=== PATIENT | female | born 1955 | race African-American/Black ===

== ENCOUNTER → 2018-09-20 | Day surgery (SDC) | payer OTHER ==
[~2018-09-20] VITALS: Ht 154.9 cm; Wt 66.7 kg
[~2018-09-20] MED LIST: ATOR10TA60 PO; BUPIVACAINE MPF 0.5% 30 ML VIAL. ONE; CALC600T23 PO; CHOL10003 PO; CLINDAMYCIN 900MG PREMIX 50 ML IV PRN; DENO60DI SQ; DEXAMETHASONE SOD PHOS 20 MG/5 ML VIAL. ONE; HYDR-3164 PO; HYDROcodone/APAP 5/325MG 1 TAB TABLET PO PRN; HYDROmorphone 2 MG/ML VIAL IV PRN; IV RINGERS,LACTATED 1000ML 1,000 ML IV SCH; LIDOCAINE 1% PF 2 ML VIAL. ID PRN; LOSA1TAB19 PO; METO-269 PO; MORPHINE SULFATE 2 MG/ML VIAL. IV PRN; ONDANSETRON PF 4 MG/2 ML VIAL. IV PRN; ONDANSETRON PF 4 MG/2 ML VIAL. ONE; PROCHLORPERAZINE 10 MG/2 ML VIAL. IV PRN; PROPOFOL 20 ML IV ONE; SCOPOLAMINE 1.5MG PATCH. TD ONE; SEVOFLURANE 31 TO 60 MINUTES. IH ONE; fentaNYL PF VIAL 100 MCG/2 ML VIAL IV PRN; fentaNYL PF VIAL 100 MCG/2 ML VIAL ONE
--- NOTE | 2018-09-20 07:49 | DISCH ---
DISCHARGE INSTRUCTIONS Condition on Discharge Condition on Discharge: Stable Activity After Discharge Activity Instructions for Disc: Other, see below (advance activity as tolerated avoid any rubbing on the incision) Driving Instructions after Dis: Do not drive Weight Bearing Status after Di: As tolerated Diet after Discharge Diet after Discharge: Cardiac, Regular Wound Incision Care Wound/Incision Care: Ice to area for comfort, Keep wound elevated, Change dressing (May remove dressing in 3 days keep butterflies strips intact may then shower but no soaking ) Contacting the DR. after DC Call your doctor for: Concerns you may have Follow-Up Follow up with: Ned 7-10 days OLIVERIO SOLIS MD Sep 20, 2018 07:49
--- NOTE | 2018-09-20 09:28 | PDOC4 ---
Operative Note Operative Note Date of surgery: 09/20/2018 Preoperative diagnosis: Symptomatic hardware right ankle Postoperative diagnosis: Same Operative procedure: Removal right ankle medial plate and screw hardware Surgeon: Ned Assist: Mukesh Eisenberg Anesthesia: Gen. Estimated blood loss: 5 mL Competitions: None Operative indications: Andra is a 63-year-old female who underwent operative reduction fixation of bilateral ankle fractures some time ago and is overall had a good recovery however she has recently developed more pain in the right ankle with activity and was noted to have slight prominence of perhaps 2-3 of the screws in the medial plate that appeared to be causing some irritation at the fibula at the distal tibiofibular joint. Given that her fracture is well- healed and the hardware has performed its function allowing stability during the healing process I went over with her the possibility of removing the symptomatic screws or perhaps even removing the entire plate. I went over with her that this would not affect her activity level as the bone was already healed. The main concerns would be infection nerve or blood vessel damage and activity modification until any incision is healed. All her questions were answered she wishes to proceed with hardware removal Operative text: Patient was identified procedure verified patient placed in the supine position on the operating table. After adequate amounts of general anesthesia were administered right lower extremity was prepped and draped in standard sterile fashion and after timeout was performed patient procedure identified and verified the right lower extremity was exsanguinated by Esmarch bandage. An incision was made over the distal aspect of the plate and subperiosteal dissection was carried out. Distal screws were removed and elected at this point to remove the entire plate to avoid any medial irritation. Complete healing have been noted with intact ankle joint mortise and her lateral hardware was symptomatic and retained. Thorough irrigation carried out normal saline solution bleeding points controlled by electrocautery subcutaneous closure with buried Vicryl suture subcuticular Monocryl Steri- Strips and Mastisol were placed followed by a well-padded soft dressing. Toes were noted be warm pink find deflation of tourniquet patient was returned recovery room in stable condition having tolerated procedure well OLIVERIO SOLIS MD Sep 20, 2018 09:28
[2018-09-20 10:15] VITALS: BP 129/81
== END | disposition home or self-care (01) ==
LOC: SURG 06:57
PROVIDERS: ATTEND Orthopaedic Surgery
DX: T84.84XA Pain due to internal orthopedic prosthetic devices, implants and grafts, initial encounter (principal); Y83.9 Surgical procedure, unspecified as the cause of abnormal reaction of the patient, or of later complication, without mention of misadventure at the time of the procedure; Z98.890 Other specified postprocedural states; Z88.8 Allergy status to other drugs, medicaments and biological substances; Z79.899 Other long term (current) drug therapy
CPT/HCPCS: 20680; 76000; J1100; J2405; J2704; J3010; J3490

== ENCOUNTER → 2020-12-17 | Outpatient (CLI) | payer BC, OTHER ==
[2018-09-20 10:15] VITALS: BP 129/81
[~2020-12-17] MED LIST changes: -BUPIVACAINE MPF 0.5% 30 ML VIAL. ONE; -CLINDAMYCIN 900MG PREMIX 50 ML IV PRN; -DEXAMETHASONE SOD PHOS 20 MG/5 ML VIAL. ONE; -HYDROcodone/APAP 5/325MG 1 TAB TABLET PO PRN; -HYDROmorphone 2 MG/ML VIAL IV PRN; -IV RINGERS,LACTATED 1000ML 1,000 ML IV SCH; -LIDOCAINE 1% PF 2 ML VIAL. ID PRN; -MORPHINE SULFATE 2 MG/ML VIAL. IV PRN; -ONDANSETRON PF 4 MG/2 ML VIAL. IV PRN; -ONDANSETRON PF 4 MG/2 ML VIAL. ONE; -PROCHLORPERAZINE 10 MG/2 ML VIAL. IV PRN; -PROPOFOL 20 ML IV ONE; -SCOPOLAMINE 1.5MG PATCH. TD ONE; -SEVOFLURANE 31 TO 60 MINUTES. IH ONE; -fentaNYL PF VIAL 100 MCG/2 ML VIAL IV PRN; -fentaNYL PF VIAL 100 MCG/2 ML VIAL ONE
--- NOTE | 2020-12-17 18:02 | KCIC ---
MRI of the lumbar spine without contrast 12/17/2020 CLINICAL HISTORY: Lumbar radiculopathy. TECHNIQUE: Unenhanced T1-weighted and T2-weighted sagittal and axial and inversion recovery sagittal images of the lumbar spine were obtained. FINDINGS: Minimal S-shaped curvature of the thoracolumbar spine is seen. A hypoplastic disc is seen a t S1-2. Degenerative signal changes are seen involving all of the disks of the lumbar spine. Degenerative sig nal changes are seen within the marrow surrounding these discs. The conus medullaris is normal morpho logy, position, and signal characteristics. Increased signal intensity is seen on the inversion recovery and T2-weighted images throughout the sa dean extending to involve the sacral ala. This demonstrates decreased signal intensity on the T1-weig hted images. These findings are consistent with acute sacral insufficiency fractures. At the L1-2 disc space there is a minimal generalized disc bulge. Superimposed on this disc bulge is a left paracentral focal disc protrusion. This measures 4 mm in AP diameter. Degenerative changes are seen involving the facet joints bilaterally. There is mild ligament flavum hypertrophy bilaterally. These findings result in mild left-sided central spinal canal stenosis. No neural foraminal stenosis is seen. At the L2-3 disc space there is a mild generalized disc bulge. This is eccentric to the left. Degener ative changes are seen involving the facet joints bilaterally. There is mild ligament flavum hypertro phy bilaterally. These findings when combined do not result in significant central spinal canal or ne ural foraminal stenosis. At the L3-4 disc space there is a mild to moderate generalized disc bulge. This is eccentric to the l eft. Degenerative changes are seen involving the facet joints bilaterally. There is moderate ligament um flavum hypertrophy bilaterally. Findings when combined result in mild to moderate central spinal c anal stenosis. Mild left greater than right neural foraminal stenosis is seen. At the L4-5 disc space there is a moderate generalized disc bulge. Superimposed on this disc bulge is a focal central disc protrusion. This measures 2 mm in AP diameter. Degenerative changes are seen in volving the facet joints bilaterally. There is moderate ligament flavum hypertrophy bilaterally. Ther e are small facet joint effusions bilaterally. These findings when combined result in mild to moderat e central spinal canal stenosis. Mild to moderate right greater than left neural foraminal stenosis i s seen. At the L5-S1 disc space is a mild generalized disc bulge. Degenerative changes are seen involving the facet joints bilaterally. There is mild ligament flavum hypertrophy bilaterally. These findings when combined result in mild central spinal canal stenosis. No neural foraminal stenosis is seen. IMPRESSION: 1. Findings are seen consistent with acute sacral insufficiency fractures. 2. The changes of degenerative disc disease are seen throughout the lumbar spine. These findings resu lt in mild left-sided central spinal canal stenosis at L1-2, mild to moderate central spinal canal st enosis at L3-4 and L4-5 and mild central spinal canal stenosis at L5-S1. Mild left greater than right neural foraminal stenosis is seen at L3-4. Mild to moderate right greater than left neural foraminal stenosis is seen at L4-5. Electronically signed by: Juancarlos Aldrich MD (12/17/2020 5:59 PM) [id number]
== END ==
LOC: KCIC MRI 13:09
PROVIDERS: ATTEND Physician Assistant
DX: M47.27 Other spondylosis with radiculopathy, lumbosacral region (principal); M51.36 Other intervertebral disc degeneration, lumbar region; M48.061 Spinal stenosis, lumbar region without neurogenic claudication
CPT/HCPCS: 72148

== ENCOUNTER → 2021-01-13 | Outpatient (CLI) | payer BC ==
[2018-09-20 10:15] VITALS: BP 129/81
[~2021-01-13] MED LIST changes: +BIOT1CAP3 PO; +CYCL10TA2 PO; +HYDR12.575 PO; +MAGN250T9 PO; +MULT-245 PO; +POTA8CAP19 PO
--- NOTE | 2021-01-13 12:46 | PDOC1 ---
INITIAL PAIN CONSULT DATE OF SERVICE: DOS: DATE: 01/13/21 TIME: 12:35 CHIEF COMPLAINT: Chief Complaint: Low back and left greater than right lower extremity pain HISTORY OF PRESENT ILLNESS: 65-year-old female presents history of pain low back left lower extremity for approximately 2 and half months after she was out walking with a friend of hers to have some significant pain in the low back and leg. Patient reports that since that time the pain is getting worse in the low back posterior gluteus posterior lateral thigh anterior thigh anterior medial thigh medial lower leg into the calf on the left leg as well. Patient reports is only on the left side not the right she walks daily or uses a stationary bicycle daily and continues to do this which is been decreasing the pain slightly but only very slightly patient had physical therapy in the past up until December of this year and helped some initially but the pain is returning and is not going away with her daily activities and exercise that she is currently doing especially on the stationary bicycle. Patient reports pain is radiating left lower extremity describes as cramping and aching in the back shooting and stabbing and throbbing in the left lower extremity patient reports it wakes her from sleep occasionally but not most nights but does not affect her bowel bladder control does affect her ability to walk she does not use any assistive devices currently but does use a electric chair when it is available to her. Patient is taken [id number] anti-inflammatories Motrin and Tylenol as well without significant decrease in pain. Patient also tried a Medrol Dosepak which was not significantly helpful in reducing the pain about a month ago. Patient had MRI scan lumbar spine dated December 17, 2020 showing degenerative disc disease throughout the lumbar spine with mild left-sided central spinal canal stenosis L1 to moderate central spinal canal stenosis at L3-4 and L4-5 mild central spinal canal stenosis at L5-S1 mild left greater than right neuroforaminal stenosis at L3-4 and right greater than left neuroforaminal stenosis at L4-5. PAST MEDICAL HISTORY: PMH: Hypertension, arthritis, hyperlipidemia PREVIOUS SURGERIES: Past Surgical Hx: Right ankle fracture and left ankle fracture 2018, benign breast cystectomy, benign ovarian cystectomy, sinus surgery, x2, tubal ligation CURRENT MEDICATIONS: Current Meds: Active Scripts Medications Dose Route/Sig Max Daily Dose Days Date Category Cyclobenzaprine Hcl 10 Mg Tablet 10 Mg PO TID 01/13/21 Reported Biotin 1 Mg Capsule 1 Mg PO DAILY 01/13/21 Reported Magnesium Oxide 250 Mg Tablet Unknown Dose PO DAILY 01/13/21 Reported Potassium Chloride 8 Meq Capsule.er Unknown Dose PO DAILY 01/13/21 Reported Hydrochlorothiazide Capsule (Hydrochlorothiazide) 12.5 Mg Capsule 12.5 Mg PO DAILY 01/13/21 Reported Multi Vitamin Daily (Multivitamin) 1 Each Tablet 1 Tab PO DAILY 30 01/13/21 Reported [place] 5-325 Tablet (Acetaminophen/Hydrocodone Bitart) 1 Each Tablet 1 Tab PO PRN Q6HRS PRN 09/20/18 Rx Atorvastatin Calcium 10 Mg Tablet 10 Mg PO HS 09/20/18 Reported Vitamin D3 (Cholecalciferol (Vitamin D3)) 1,000 Unit Tablet 1,000 Unit PO DAILY 09/20/18 Reported Toprol Xl (Metoprolol Succinate) 50 Mg Tab.er.24h 50 Mg PO DAILY 09/20/18 Reported Losartan-Hctz 50-12.5 Mg Tab (Losartan/Hydrochlorothiazide) 1 Each Tablet 1 Each PO DAILY 09/20/18 Reported ALLERGIES; Allergies: Coded Allergies: cefaclor (Verified Allergy, Intermediate, 07/04/15) FAMILY HISTORY: Family Hx: Colon cancer, bone cancer SOCIAL HISTORY: Social Hx: Patient drinks alcohol very rarely does not smoke not use any illegal illicit recreational drugs is lives with her spouse has 2 children living at home lives locally in [facility], and is currently retired. REVIEW OF SYSTEMS: ROS: Positive for those items mentioned in history of present illness, all systems are reviewed, otherwise negative ,and are complete full and well-documented on patient's chart. PHYSICAL EXAM: VS: Blood pressure is 144/93 pulse 101 respirations 16 temperature 98.2 F height is 5 foot 1 inch, weight 172 pounds PE: PHYSICAL EXAMINATION: GENERAL: The patient is awake, alert, oriented, appropriate, very pleasant demeanor HEENT: Shows normocephalic, atraumatic. Extraocular movements are intact and symmetrical. Oral cavity: Mucous membranes moist and pink. NECK: Shows anterior throat supple without palpable lymphadenopathy noted. Swallow reflex symmetrical. CHEST: Shows normal on inspection. Breath sounds are clear bilaterally, no rales or rhonchi auscultated. HEART: Shows S1, S2 clear. No murmurs auscultated. ABDOMEN: Soft, nontender, nondistended obese. No palpable organomegaly is noted. No rebound or guarding demonstrated. BACK: Shows spine grossly in the midline. Normal-appearing cervical lordotic curvature. There is slightly increased thoracic kyphosis, some minor flattening of the lumbar lordotic curvature. Lumbar paraspinous muscles show symmetrical on inspection, on palpation shows some moderate tenderness diffusely throughout the upper, middle and lower distribution of the paraspinous muscles bilaterally and also into the lower thoracic paraspinous musculature, firm and tender, but without specific trigger points, without radiation of pain. The patient has good rotational motion of the lumbar spine, both laterally as well as extension and flexion without significant difficulty. No tenderness over the spinous processes, sacrum or sacroiliac regions. EXTREMITIES: Lower extremities show deep tendon reflexes 1+ in the patellar and tendo calcaneus tendons. Motor exam is 4 on a scale of 5 with right dorsiflexion, extension, quadriceps and hamstring flexion and 4/5 on the left. Peripheral pulses are 1+ posterior tibial. No peripheral edema is noted bilaterally. Lower extremities are warm and dry to touch, equal in color and appearance. Straight leg raise noted to be negative on the right, left side is positive approximately 40 degrees decreased with knee flexion. Gaenslen's and Ramsey's maneuvers are negative bilaterally. The patient is able to stand, stand on her toes without significant difficulty or loss of balance walks with a slight shuffling gait does appear to favor her left lower extremity but not use any assistive devices on her visit today. SKIN: Shows warm and dry, good turgor. No edema. No sores, rashes or bruising throughout. IMPRESSION: Impression: 65-year-old female with 2 and half month history increasing pain low back left lower extremity and radicular fashion MRI scan lumbar spine as noted Hypertension Osteoporosis Arthritis Plan: Options were discussed with the patient including conservative management with continued physical therapies and interventional techniques. Patient would like to pursue interventional techniques. Discussed a lumbar epidural steroid injection using description as well as anatomical models to describe the procedure. Patient wait for preauthorization with her insurance provider and once is obtained we will plan on translaminar approach L4-5 level lumbar epidural steroid injection at that time. In the meantime patient will continue with stretching strength exercises from her physical therapy also oral analgesics as currently taking. BAMBI CALHOUN MD Jan 13, 2021 12:46
== END | disposition home or self-care (01) ==
LOC: PNCL 09:34
PROVIDERS: ATTEND Anesthesiology
DX: M54.5 Low back pain (principal); M48.061 Spinal stenosis, lumbar region without neurogenic claudication; M51.36 Other intervertebral disc degeneration, lumbar region; M79.604 Pain in right leg; I10 Essential (primary) hypertension; M19.90 Unspecified osteoarthritis, unspecified site; E78.00 Pure hypercholesterolemia, unspecified; F41.9 Anxiety disorder, unspecified; Z98.51 Tubal ligation status; Z98.890 Other specified postprocedural states; Z79.899 Other long term (current) drug therapy; Z72.89 Other problems related to lifestyle; Z88.8 Allergy status to other drugs, medicaments and biological substances
CPT/HCPCS: G0463

== ENCOUNTER → 2021-01-17 | Outpatient (CLI) | payer BC ==
[2018-09-20 10:15] VITALS: BP 129/81
[~2021-01-17] MED LIST changes: +IOHEXOL 180 MG/ML 10 ML VIAL. ONE; +methylPREDNISolone ACETATE 40 MG/ML VIAL. ONE; +methylPREDNISolone ACETATE 80 MG/ML VIAL. ONE
--- NOTE | 2021-01-17 09:21 | PDOC ---
Progress Note - Pain Clinic Date of Service: DOS: DATE: 01/17/21 TIME: 09:18 Diagnosis: Dx: Lumbar radiculopathy with lumbar degenerative disease and lumbar spinal stenosis History or Present Illness: HPI: 65-year-old female returns to follow-up status post initial evaluation preauthorization for lumbar epidural steroid injection. Patient continues to have pain low back left lower extremity as it was previously posterior gluteus posterior lateral thigh lateral anterior thigh anteromedial thigh radiating to the calf scribes aching and cramping without any significant change. Patient reports her pain is a 7 on scale 10 is worst over this week for an average to its least is a 4 today patient reports is worse with walking standing changing positions better with sitting or laying down patient reports no new motor or sensory deficits no new bowel complaints. Physical Exam: VS: Blood pressure is 138/99 pulse 111 respirations 18 temperature 98.5 F weight is 110 pounds PE: PHYSICAL EXAMINATION: GENERAL: The patient is awake, alert, oriented, appropriate, very pleasant demeanor HEENT: Shows normocephalic, atraumatic. Extraocular movements are intact and symmetrical. Oral cavity: Mucous membranes moist and pink. NECK: Shows anterior throat supple without palpable lymphadenopathy noted. Swallow reflex symmetrical. CHEST: Shows normal on inspection. Breath sounds are clear bilaterally. HEART: Shows S1, S2 clear. No murmurs auscultated. ABDOMEN: Soft, nontender, nondistended. No palpable organomegaly is noted. No rebound or guarding demonstrated. BACK: Shows spine grossly in the midline. Normal-appearing cervical lordotic curvature. There is slightly increased thoracic kyphosis, some minor flattening of the lumbar lordotic curvature. Lumbar paraspinous muscles show symmetrical on inspection, on palpation shows some moderate tenderness diffusely throughout the upper, middle and lower distribution of the paraspinous muscles without specific trigger points, without radiation of pain. The patient has good rotational motion of the lumbar spine, both laterally as well as extension and flexion without significant difficulty. EXTREMITIES: Lower extremities show deep tendon reflexes 1+ in the patellar and tendo calcaneus tendons. Motor exam is 4 on a scale of 5 with right dorsiflexion, extension, quadriceps and hamstring flexion and 4/5 on the left. Peripheral pulses are 1+ posterior tibial. No peripheral edema is noted bilaterally. Lower extremities are warm and dry to touch, equal in color and appearance. SKIN: Shows warm and dry, good turgor. No edema. No sores, rashes or bruising throughout. Procedure: Procedure: Options were discussed with the patient. Patient chart reviews her current m edication regimen updated current review of systems updated today as well. We will proceed with a lumbar epidural steroid injection today with fluoroscopic guidance. Risks were discussed including but not limited to: Bleeding, infection, possibility of epidural hematoma and subsequent neurological compromise, dural puncture, headaches, spinal cord and/or nerve damage, side effects of steroid medication, and poor results regarding pain control. Patient understands and wished to proceed. Patient return to the clinic in approximate 2 weeks for follow-up, was counseled as return appointment, activity level, and side effects to be aware of. Medication Injected: Med Injected: Procedure is lumbar epidural steroid injection under local anesthetic using sterile prep and drape at the L4-5 level using C-arm fluoroscopic guidance in both AP and lateral views medications injected is 120 mg Depo-Medrol + 10 mL preservative-free normal saline and 2 mL contrast- condition at discharge is stable patient tolerated procedure well had no complications. Condition at Discharge: Condition at Discharge: Condition at discharge is stable, patient already procedure well and had no complications. BAMBI CALHOUN MD Jan 17, 2021 09:20
--- NOTE | 2021-01-17 09:21 | PDOC4 ---
PROCEDURE Procedure Patient was consented for lumbar epidural steroid injection. Risks were dis cussed including but not limited to: Bleeding, infection, possibility of epidural hematoma and subsequent neurological compromise, dural puncture, headaches, spinal cord and/or nerve damage, side effects of steroid medication, and poor results regarding pain control. Patient understands and wished to proceed. Procedure is lumbar epidural steroid injection under local anesthetic using sterile prep and drape at the L4-5 level using C-arm fluoroscopic guidance in both AP and lateral views medications injected is 120 mg Depo-Medrol + 10 mL preservative-free normal saline and 2 mL contrast- condition at discharge is stable patient tolerated procedure well had no complications. BAMBI CALHOUN MD Jan 17, 2021 09:21
== END | disposition home or self-care (01) ==
LOC: PNCL 08:26
PROVIDERS: ATTEND Anesthesiology
DX: M51.16 Intervertebral disc disorders with radiculopathy, lumbar region (principal); M48.061 Spinal stenosis, lumbar region without neurogenic claudication; E78.00 Pure hypercholesterolemia, unspecified; I10 Essential (primary) hypertension; M81.0 Age-related osteoporosis without current pathological fracture; F41.9 Anxiety disorder, unspecified; Z98.51 Tubal ligation status; Z98.890 Other specified postprocedural states; Z79.899 Other long term (current) drug therapy; Z72.89 Other problems related to lifestyle; Z88.8 Allergy status to other drugs, medicaments and biological substances
CPT/HCPCS: 62323; J1030; J1040; Q9965

== ENCOUNTER → 2021-01-31 | Outpatient (CLI) | payer BC ==
[2018-09-20 10:15] VITALS: BP 129/81
[~2021-01-31] MED LIST changes: -IOHEXOL 180 MG/ML 10 ML VIAL. ONE; -methylPREDNISolone ACETATE 40 MG/ML VIAL. ONE; -methylPREDNISolone ACETATE 80 MG/ML VIAL. ONE
--- NOTE | 2021-01-31 11:09 | PDOC ---
Progress Note - Pain Clinic Date of Service: DOS: DATE: 01/31/21 TIME: 11:06 Diagnosis: Dx: Lumbar radiculopathy with lumbar degenerative disease and lumbar spinal stenosis History or Present Illness: HPI: 65-year-old female returns for follow-up status post lumbar epidural steroid traction x1. Patient reports about 80 to 90% improvement after the injection and still significantly improved by about 80% patient reports the pain is occasional now only in the left lower extremity in the low back she is increasing her activity with greater ease and comfort continues to do stretching and strength exercises daily is riding a stationary bike at least twice daily and feels good doing this patient reports she is feeling much better is very impressed with her improvement she is doing better with distance walking doing household activities travel with greater ease and comfort sleeping well at night does not awaken her from sleep patient reports her pain is a 5 on a scale 10 is worse over the past week 2 on average 0 its least and is a 0 today patient reports aching and dull in the back and the calf at times but only with extended walking more than 2-3 times a day and the pain resolves after she rests. Patient new motor or sensory deficits no bowel or bladder incontinence or other complaints. Physical Exam: VS: Blood pressure is 132/84 pulse 111 respirations 18 temperature 98.1 F weight is 162 pounds PE: PHYSICAL EXAMINATION: GENERAL: The patient is awake, alert, oriented, appropriate, very pleasant demeanor HEENT: Shows normocephalic, atraumatic. Extraocular movements are intact and symmetrical. Oral cavity: Mucous membranes moist and pink. NECK: Shows anterior throat supple without palpable lymphadenopathy noted. Swallow reflex symmetrical. CHEST: Shows normal on inspection. Breath sounds are clear bilaterally, no rales or rhonchi. HEART: Shows S1, S2 clear. No murmurs auscultated. ABDOMEN: Soft, nontender, nondistended, obese. No palpable organomegaly is noted. No rebound or guarding demonstrated. BACK: Shows spine grossly in the midline. Normal-appearing cervical lordotic curvature. There is slightly increased thoracic kyphosis, some minor flattening of the lumbar lordotic curvature. Lumbar paraspinous muscles show symmetrical on inspection, on palpation shows some moderate tenderness diffusely throughout the upper, middle and lower distribution of the paraspinous muscles without specific trigger points, without radiation of pain. The patient has good rotational motion of the lumbar spine, both laterally as well as extension and flexion without significant difficulty. EXTREMITIES: Lower extremities show deep tendon reflexes 1 in the patellar and tendo calcaneus tendons. Motor exam is 4 on a scale of 5 with right kinza siflexion, extension, quadriceps and hamstring flexion and 4/5 on the left. Peripheral pulses are 1+ posterior tibial. No peripheral edema is noted bilaterally. Lower extremities are warm and dry to touch, equal in color and appearance. SKIN: Shows warm and dry, good turgor. No edema. No sores, rashes or bruising throughout. Procedure: Procedure: Options were discussed with the patient. Patient chart reviews her current medication regimen updated current review of systems updated today as well. We will get patient preauthorized for second lumbar epidural steroid that she is doing very well after the first injection with 80 to 90% improvement still lasting to this day 3 weeks later but the pain is beginning to return in the left lower extremity in a radicular fashion once again following an L4-5 dermatomal distribution. Patient will continue with stretching strength exercises also riding her stationary bike twice daily and activity as tolerated. Patient will take anti-inflammatories but only rarely and reports she is only needed her pain medicine about 3 times since her last visit. Once approved we will plan on translaminar approach L4-5 lumbar epidural steroid injection at that time. Medication Injected: Med Injected: None Condition at Discharge: Condition at Discharge: Condition at discharge is stable. BAMBI CALHOUN MD Jan 31, 2021 11:09
== END | disposition home or self-care (01) ==
LOC: PNCL 10:18
PROVIDERS: ATTEND Anesthesiology
DX: M51.16 Intervertebral disc disorders with radiculopathy, lumbar region (principal); M48.061 Spinal stenosis, lumbar region without neurogenic claudication; I10 Essential (primary) hypertension; E78.00 Pure hypercholesterolemia, unspecified; M81.0 Age-related osteoporosis without current pathological fracture; F41.9 Anxiety disorder, unspecified; Z98.51 Tubal ligation status; Z98.890 Other specified postprocedural states; Z79.899 Other long term (current) drug therapy; Z72.89 Other problems related to lifestyle; Z88.8 Allergy status to other drugs, medicaments and biological substances
CPT/HCPCS: 99212; G0463

== ENCOUNTER → 2021-06-27 | Outpatient (CLI) | payer BC ==
[2018-09-20 10:15] VITALS: BP 129/81
[~2021-06-27] MED LIST changes: +IOHEXOL 180 MG/ML 10 ML VIAL. ONE; +methylPREDNISolone ACETATE 80 MG/ML VIAL. ONE
--- NOTE | 2021-06-27 12:09 | PDOC ---
Progress Note - Pain Clinic Date of Service: DOS: DATE: 06/27/21 TIME: 12:05 Diagnosis: Dx: Lumbar radiculopathy with lumbar degenerative disease and lumbar spinal stenosis History or Present Illness: HPI: 65-year-old female returns for follow-up status post lumbar epidural steroid injection last seen January 17, 2021 patient did very well about 90% improvement with the low back and left lower extremity pain pain returning now fairly abruptly over the past few weeks patient reports pain is in the low back left lower extremity posterior gluteus posterior lateral thigh lateral anterior thigh anteromedial thigh into the calf on the left side as well describes aching sharp and shooting on and off in intensity but worse with standing prolonged periods or sitting for too long when she is up moving around when she walks for about a minute the pain begins to lessen but is never gone patient reports that "gets stiff "in the low back and left lower extremity with standing and sitting patient reports is waking her from sleep but not every night. Patient reports initially she did much better distance walking doing household activities try with greater ease and comfort now rates her pain a 9 on scale 10 is worse over the past week 7 on average for its least and is a 7 today. Patient reports no bowel or bladder incontinence. Physical Exam: VS: Blood pressure is 137/92 pulse 105 respirations 18 temperature 97.9 F height is 5 foot 1 inch weight is 152 pounds PE: PHYSICAL EXAMINATION: GENERAL: The patient is awake, alert, oriented, appropriate, very pleasant in demeanor, patient accompanied by her daughter HEENT: Shows normocephalic, atraumatic. Extraocular movements are intact and symmetrical. Oral cavity: Mucous membranes moist and pink. NECK: Shows anterior throat supple without palpable lymphadenopathy noted. Swallow reflex symmetrical. CHEST: Shows normal on inspection. Breath sounds are clear bilaterally, no rales or rhonchi auscultated. HEART: Shows S1, S2 clear. No murmurs auscultated. ABDOMEN: Soft, nontender, nondistended, obese. No palpable organomegaly is noted. BACK: Shows spine grossly in the midline. Normal-appearing cervical lordotic curvature. There is increased thoracic kyphosis, some flattening of the lumbar lordotic curvature. Lumbar paraspinous muscles show symmetrical on inspection, on palpation shows some moderate tenderness diffusely throughout the upper, middle and lower distribution of the paraspinous muscles, but without specific trigger points, without radiation of pain. The patient has good rotational motion of the lumbar spine, both laterally as well as extension and flexion without significant difficulty. No tenderness over the spinous processes, sacrum or sacroiliac regions. EXTREMITIES: Lower extremities show deep tendon reflexes 1 in the patellar and tendo calcaneus tendons. Motor exam is 4 on a scale of 5 with right do rsiflexion, extension, quadriceps and hamstring flexion and 4/5 on the left. Peripheral pulses are 1+ posterior tibial. No peripheral edema is noted bilaterally. Lower extremities are warm and dry to touch, equal in color and appearance. SKIN: Shows warm and dry, good turgor. No edema. No sores, rashes or bruising throughout. Procedure: Procedure: Options were discussed with the patient. Patient chart was reviewed as her current medication regimen updated current review of systems updated today as well. We will proceed with a lumbar epidural steroid injection today with fluoroscopic guidance. Risks were discussed including but not limited to: Bleeding, infection, possibility of epidural hematoma and subsequent neurolo gical compromise, dural puncture, headaches, spinal cord and/or nerve damage, side effects of steroid medication, and poor results regarding pain control. Patient understands and wished to proceed. Patient will return to the clinic in approximate 2 weeks for follow-up, was counseled as return appointment, activity level, and side effects be aware of. Medication Injected: Med Injected: Procedure is lumbar epidural steroid injection under local anesthetic using sterile prep and drape at the L4-5 level using C-arm fluoroscopic guidance in both AP and lateral views medications injected is 120 mg Depo-Medrol +10mL preservative-free normal saline and 2 mL contrast- condition at discharge is stable patient tolerated procedure well had no complications. Condition at Discharge: Condition at Discharge: Condition at discharge is stable, patient tolerated the procedure well and had no complications. BAMBI CALHOUN MD Jun 27, 2021 12:09
--- NOTE | 2021-06-27 12:10 | PDOC4 ---
Procedure Note: ICD 10 Code: ICD 10 Code: M54.16 M4 8.06 M51.36 Procedure Note: Patient was consented for lumbar epidural steroid injection with fluoroscopic guidance. Risks were discussed including but not limited to: Bleeding, infection, possibility of epidural hematoma and subsequent neurological compromise, dural puncture, headaches, spinal cord and/or nerve damage, side effects of steroid medication, and poor results regarding pain control. Patient understands and wished to proceed. Procedure is lumbar epidural steroid injection under local anesthetic using kristina rile prep and drape at the L4-5 level using C-arm fluoroscopic guidance in both AP and lateral views medications injected is 120 mg Depo-Medrol +10mL preservative-free normal saline and 2 mL contrast- condition at discharge is stable patient tolerated procedure well had no complications. BAMBI CALHOUN MD Jun 27, 2021 12:09
== END | disposition home or self-care (01) ==
LOC: PNCL 10:48
PROVIDERS: ATTEND Anesthesiology
DX: M51.16 Intervertebral disc disorders with radiculopathy, lumbar region (principal); M48.061 Spinal stenosis, lumbar region without neurogenic claudication; I10 Essential (primary) hypertension; E78.00 Pure hypercholesterolemia, unspecified; M81.0 Age-related osteoporosis without current pathological fracture; F41.9 Anxiety disorder, unspecified; Z98.51 Tubal ligation status; Z98.890 Other specified postprocedural states; Z79.899 Other long term (current) drug therapy; Z88.8 Allergy status to other drugs, medicaments and biological substances; Z72.89 Other problems related to lifestyle
CPT/HCPCS: 62323; J1040; Q9965

== ENCOUNTER → 2021-06-30 | Outpatient (CLI) | payer BC ==
[2018-09-20 10:15] VITALS: BP 129/81
[~2021-06-30] MED LIST changes: -IOHEXOL 180 MG/ML 10 ML VIAL. ONE; -methylPREDNISolone ACETATE 80 MG/ML VIAL. ONE
--- NOTE | 2021-06-30 16:07 | PDOC ---
Progress Note - Pain Clinic Date of Service: DOS: DATE: 06/30/21 TIME: 16:05 Diagnosis: Dx: Lumbar radiculopathy with lumbar degenerative disease and lumbar spinal stenosis History or Present Illness: HPI: Telemedicine visit with patient today with identity verified using date of as well as full name. Total time spent: 12 minutes 65-year-old female with telemedicine visit follow-up today as patient had concerns regarding continued back and left lower extremity pain following lumbar epidural steroid injection June 27. Patient reports that the pain is still fairly persistent although is slightly improved today but is still in the low back left lower extremity in the posterior lateral lateral anterior thigh anterior medial thigh medial lower leg worse with walking standing changing positions. Patient reports her back is still sore from the injection but slowly improving. Patient has been using heat and ice application with ice feels better and she is doing that more. Patient maintain stretching and strengthening exer cises as well as walking daily as she can. We encouraged her to maintain these methods that she is employed with ice and heat alternating stretching and walking as tolerated also to add ibuprofen 600 mg 2-3 times daily as this may help decrease the pain as well. Patient voiced understanding and will follow up with progress note in the next 1 to 2 days. Physical Exam: PE: BAMBI CALHOUN MD Jun 30, 2021 16:07
== END | disposition home or self-care (01) ==
LOC: PNCL 15:47
PROVIDERS: ATTEND Anesthesiology
DX: M51.16 Intervertebral disc disorders with radiculopathy, lumbar region (principal); M48.061 Spinal stenosis, lumbar region without neurogenic claudication; I10 Essential (primary) hypertension; E78.00 Pure hypercholesterolemia, unspecified; M81.0 Age-related osteoporosis without current pathological fracture; F41.9 Anxiety disorder, unspecified; Z72.89 Other problems related to lifestyle; Z79.899 Other long term (current) drug therapy; Z98.890 Other specified postprocedural states; Z88.8 Allergy status to other drugs, medicaments and biological substances
CPT/HCPCS: G0463

== ENCOUNTER → 2021-08-01 | Outpatient (CLI) | payer BC ==
[2018-09-20 10:15] VITALS: BP 129/81
[~2021-08-01] MED LIST changes: +IOHEXOL 180 MG/ML 10 ML VIAL. ONE; +methylPREDNISolone ACETATE 40 MG/ML VIAL. ONE; +methylPREDNISolone ACETATE 80 MG/ML VIAL. ONE
--- NOTE | 2021-08-01 10:45 | PDOC4 ---
Procedure Note: ICD 10 Code: ICD 10 Code: M54.16 M4 8.06 M51.36 Procedure Note: Patient is consented for lumbar epidural steroid injection with fluoroscopic guidance. Risks were discussed including but not limited to: Bleeding, infection, possibility of epidural hematoma and subsequent neurological compromise, dural puncture, headaches, spinal cord and/or nerve damage, side effects of steroid medication, and poor results regarding pain control. Patient understands and wished to proceed. Procedure is lumbar epidural steroid injection under local anesthetic using ster ile prep and drape at the L4-5 level using C-arm fluoroscopic guidance in both AP and lateral views medications injected is 120 mg Depo-Medrol +10mL preservative-free normal saline and 2 mL contrast- condition at discharge is stable patient tolerated procedure well had no complications. BAMBI CALHOUN MD Aug 01, 2021 10:45
--- NOTE | 2021-08-01 10:45 | PDOC ---
Progress Note - Pain Clinic Date of Service: DOS: DATE: 08/01/21 TIME: 10:41 Diagnosis: Dx: Lumbar radiculopathy with lumbar degenerative disease and lumbar spinal stenosis History or Present Illness: HPI: 65-year-old female returns for follow-up status post lumbar epidural steroid injection reports today pain returning in the low back and left lower extremity posterior gluteus posterior lateral thigh lateral anterior thigh anteromedial thigh on the left side worse with walking standing changing positions although is better during the day is worse in the evenings and she feels better when she is moving and getting around patient reports when she rests for too long with even with sitting it can increase the pain the low back and left leg patient reports it generally does not awaken her from sleep at night however she feels better with laying down patient reports pain is 8 on scale 10 is worse over the past week 5 on average 1 its least is a 5 today patient reports no bowel or bladder incontinence initially to do much better distance walking doing household activities work activities travel with greater ease and comfort as well. Patient describes pain is aching and tight and cramping in the back and shooting and constant in the leg when it is radiating. Patient reports no bowel or bladder incontinence. Physical Exam: VS: Blood pressure is 133/85 pulse 111 respirations are 18 temperature is 99.5 F height is 5 foot 1 inches weight is 159 pounds PE: PHYSICAL EXAMINATION: GENERAL: The patient is awake, alert, oriented, appropriate, very pleasant in demeanor HEENT: Shows normocephalic, atraumatic. Extraocular movements are intact and symmetrical. Oral cavity: Mucous membranes moist and pink. NECK: Shows anterior throat supple without palpable lymphadenopathy noted. Swallow reflex symmetrical. CHEST: Shows normal on inspection. Breath sounds are clear bilaterally, no rales or rhonchi auscultated. HEART: Shows S1, S2 clear. No murmurs auscultated. ABDOMEN: Soft, nontender, nondistended, obese. No palpable organomegaly is noted. BACK: Shows spine grossly in the midline. Normal-appearing cervical lordotic curvature. There is increased thoracic kyphosis, flattening of the lumbar lordotic curvature. Lumbar paraspinous muscles show symmetrical on inspection, on palpation shows some moderate tenderness diffusely throughout the upper, middle and lower distribution of the paraspinous muscles without specific trigger points, without radiation of pain. The patient has good rotational motion of the lumbar spine, both laterally as well as extension and flexion without significant difficulty. EXTREMITIES: Lower extremities show deep tendon reflexes 1+ in the patellar and tendo calcaneus tendons. Motor exam is 4 on a scale of 5 with right dorsiflexion, extension, quadriceps and hamstring flexion and 4/5 on the left. Peripheral pulses are 1+ posterior tibial. No peripheral edema is noted bilaterally. Lower extremities are warm and dry to touch, equal in color and appearance. SKIN: Shows warm and dry, good turgor. No edema. No sores, rashes or bruising throughout. Procedure: Procedure: Options were discussed with the patient. Patient's old chart reviewed her current medication regimen updated current review of systems updated today as well. We will proceed with a lumbar epidural steroid injection today with fluoroscopic guidance. Risks were discussed including but not limited to: Bleeding, infection, possibility of epidural hematoma and subsequent neurological compromise, dural puncture, headaches, spinal cord and/or nerve damage, side effects of steroid medication, and poor results regarding pain control. Patient understands and wished to proceed. Patient will return to the clinic in approximately 2 weeks for follow-up, was counseled as return appointment, activity level, and side effects to be aware of. Medication Injected: Med Injected: Procedure is lumbar epidural steroid injection under local anesthetic using sterile prep and drape at the L4-5 level using C-arm fluoroscopic guidance in both AP and lateral views medications injected is 120 mg Depo-Medrol +10mL preservative-free normal saline and 2 mL contrast- condition at discharge is stable patient tolerated procedure well had no complications. Condition at Discharge: Condition at Discharge: Condition at discharge stable, patient already procedure well and had no complications. BAMBI CALHOUN MD Aug 01, 2021 10:45
== END | disposition home or self-care (01) ==
LOC: PNCL 09:48
PROVIDERS: ATTEND Anesthesiology
DX: M51.16 Intervertebral disc disorders with radiculopathy, lumbar region (principal); M48.061 Spinal stenosis, lumbar region without neurogenic claudication; I10 Essential (primary) hypertension; E78.00 Pure hypercholesterolemia, unspecified; F41.9 Anxiety disorder, unspecified; M81.0 Age-related osteoporosis without current pathological fracture; Z98.51 Tubal ligation status; Z98.890 Other specified postprocedural states; Z79.899 Other long term (current) drug therapy; Z88.8 Allergy status to other drugs, medicaments and biological substances; Z72.89 Other problems related to lifestyle
CPT/HCPCS: 62323; J1030; J1040; Q9965